=== PATIENT | male | born 1945 | race Caucasian/White ===

== ENCOUNTER 2016-10-21 17:09 | Inpatient (IN) | payer MEDICARE, OTHER ==
[~2016-10-21] VITALS: Ht 177.8 cm; Wt 88.6 kg
[2016-10-21] MEDS ORDERED: IV NORMAL SALINE 1000ML BAG 1,000 ML IV SCH (18:30)
[2016-10-21 18:31] LABS: BASO # 0.1 x10^3/uL (0.0-0.2); BASO % 1 % (0-3); EOS % 3 % (0-3); HEMATOCRIT 34.3 % (39.0-53.0); LYMPH # 1.5 x10^3/uL (1.0-4.8); LYMPH % 23 % (24-48); MEAN CORPUSCULAR HEMOGLOBIN 28 pg (25-35); MEAN CORPUSCULAR HGB CONC 32 g/dL (31-37); MEAN CORPUSCULAR VOLUME 86 fL (79-100); MONO % 9 % (0-9); NEUT % 64 % (31-73); PLATELET COUNT 119 x10^3/uL (140-400); RED CELL DISTRIBUTION WIDTH 19.4 % (11.5-14.5); WHITE BLOOD COUNT 6.5 x10^3/uL (4.0-11.0)
[2016-10-21 18:54] LABS: CALCIUM 8.6 mg/dL (8.5-10.1); CREATININE 2.7 mg/dL (0.7-1.3); GFR 23.3; POTASSIUM 3.4 mmol/L (3.5-5.1)
--- NOTE | 2016-10-21 18:55 | RAD ---
PROCEDURE Head CT without contrast. HISTORY Altered mental status. TECHNIQUE Computed tomographic images the head were obtained without contrast. One or more of the following individualized dose reduction techniques were utilized for this examination: 1. Automated exposure control; 2. Adjustment of the mA and/or kV according to patient size; 3. Use of iterative reconstruction technique. COMPARISON None. FINDINGS There is no acute or subacute hemorrhage. There is no mass effect or midline shift. There is no hydrocephalus. There is mild cerebral atrophy. There is a chronic lacunar infarct within the right caudate nucleus, with associated ex vacuo dilatation of the frontal horn of the right lateral ventricle. There are scattered areas of hypodensity within the cerebral white matter, likely due to chronic small vessel disease. There are findings consistent with lens surgery. The paranasal sinuses mastoid air cells are unremarkable. No calvarial lesion is seen. IMPRESSION 1. Scattered areas of hypodensity within the cerebral white matter, likely due to chronic small vessel disease. 2. Chronic lacunar infarct within the right caudate nucleus. 3. Cerebral volume loss. 4. Note is made that MRI is more sensitive for acute infarction. Electronically signed by: Ree Galvez (Oct 21, 2016 18:53:53)
[2016-10-21 19:04] LABS: ALBUMIN 2.6 g/dL (3.4-5.0); ALBUMIN/GLOBULIN RATIO 0.5 (1.0-1.7); TOTAL BILIRUBIN 0.9 mg/dL (0.2-1.0); TOTAL PROTEIN 7.6 g/dL (6.4-8.2)
[2016-10-21 19:15] LABS: BILIRUBIN,URINE NEGATIVE (NEG); GLUCOSE,URINE NEGATIVE (NEG); NITRITE,URINE POSITIVE (NEG); PROTEIN,URINE 100 mg/dL (NEG-TRACE); UROBILINOGEN,URINE 0.2 mg/dL (0.2 mg/dL)
[2016-10-21 19:21] LABS: BACTERIA,URINE MANY /HPF (0-FEW); WBC,URINE >40 /HPF (0-4)
[2016-10-21] MEDS ORDERED: ONDANSETRON PF 4 MG/2 ML VIAL. IV PRN (20:15)
[2016-10-21] MEDS ORDERED: CEFTRIAXONE 1GM IVPB FOR OMNI 50 ML IV ONE (20:15)
[2016-10-21] MEDS ORDERED: IV DEXTROSE 5% - 0.9 % NACL 1,000 ML IV ONE (20:30)
[2016-10-21 22:46] VITALS: BP 118/66
[2016-10-21 22:47] VITALS: BP 118/66
--- NOTE | 2016-10-21 23:41 | PHYS DOC ---
Past Medical History Past Medical History: A-Fib, Bipolar, Depression, Diabetes-Type II, HIV, Hypertension, Hypothyroid Additional Past Medical Histor: BPH, INSOMNIA Past Surgical History: Other Additional Past Surgical Histo: CATARACT Alcohol Use: None Drug Use: None Adult General Chief Complaint Chief Complaint: ALTERED MENTAL STATUS HPI HPI Patient is a 71 year old gentleman who came today from the correction secondary to altered mental status. Patient does have a history of HIV, diabetes , hypertension, UTIs, bipolar. History per EMS was patient upon arrival to the correction had a blood sugar in the 60s. Patient was given an amp of D50 and blood sugar has remained in the 90s. They report that he had no change in his altered mental status after given D50 so they went ahead and gave him Narcan. EMS reported that his metal status was worse after giving him Narcan. Patient does have a phenyl patch on his back which was removed. History is very limited secondary to his altered mental status and dementia. No further history is obtainable at this time from the patient Patient's ER workup was significant for a UA with her the 40 wbc's per high- power field. Patient's blood sugar remained stable in the ED. Patient does not present with symptoms that would be concerning for meningitis. Patient's chest x -ray did not reveal any pneumonia. Patient is DNR. Patient will be admitted to the hospital for treatment of a UTI with altered mental status. Patient be started on D5 half-normal saline to help maintain his blood sugar. Patient was given IV Rocephin in the ER cultures were sent. Review of Systems Review of Systems Review of Systems unobtainable secondary to the patient's Current Medications Current Medications Current Medications Medications (Trade) Dose Ordered Sig/Emma Start Time Stop Time Status Last Admin Dose Admin Sodium Chloride (Iv Sodium Chloride 0.9% 1000ml Bag) 1,000 ml @ 1,000 mls/hr Q1H 10/21/16 18:30 10/21/16 19:29 DC 10/21/16 19:08 1,000 MLS/HR Allergies Allergies Allergies Coded Allergies Type Severity Reaction Last Updated Verified diltiazem Allergy Intermediate 10/21/16 Yes Physical Exam Physical Exam Constitutional: Cachectic unresponsive to verbal stimuli. Patient responds to painful stimuli. Patient responds to sound. Patient moving all extremities HENT: Normocephalic, atraumatic, bilateral external ears normal, dry mucous membranes. Eyes: , no discharge. [] Neck: Difficult to assess secondary to altered mental status. Cardiovascular:Heart rate regular rhythm, Lungs & Thorax: Bilateral breath sounds clear to auscultation [] Abdomen: Bowel sounds normal, soft, no tenderness, no masses, no pulsatile masses. [] Skin: Warm, dry, no erythema Back: No tenderness, no CVA tenderness. [] Extremities: No tenderness, no cyanosis, no clubbing, ROM intact, no edema. [] Neurologic: Unable to fully assess secondary to decreased responsiveness. Current Patient Data Vital Signs Vital Signs Date Time Temp Pulse Resp B/P Pulse Ox O2 Delivery O2 Flow Rate FiO2 10/21/16 20:05 54 13 127/67 99 Room Air 10/21/16 17:36 97.5 97.5 Lab Values Laboratory Tests Test 10/21/16 17:38 10/21/16 18:24 10/21/16 18:45 10/21/16 18:54 Glucose (Fingerstick) 89mg/dL (70-99) 71mg/dL (70-99) White Blood Count 6.5x10^3/uL (4.0-11.0) Red Blood Count 4.00x10^6/uL (4.30-5.70) L Hemoglobin 11.0g/dL (13.0-17.5) L Hematocrit 34.3% (39.0-53.0) L Mean Corpuscular Volume 86fL (79-100) Mean Corpuscular Hemoglobin 28pg (25-35) Mean Corpuscular Hemoglobin Concent 32g/dL (31-37) Red Cell Distribution Width 19.4% (11.5-14.5) H Platelet Count 119x10^3/uL (140-400) L Neutrophils (%) (Auto) 64% (31-73) Lymphocytes (%) (Auto) 23% (24-48) L Monocytes (%) (Auto) 9% (0-9) Eosinophils (%) (Auto) 3% (0-3) Basophils (%) (Auto) 1% (0-3) Neutrophils # (Auto) 4.2x10^3uL (1.8-7.7) Lymphocytes # (Auto) 1.5x10^3/uL (1.0-4.8) Monocytes # (Auto) 0.5x10^3/uL (0.0-1.1) Eosinophils # (Auto) 0.2x10^3/uL (0.0-0.7) Basophils # (Auto) 0.1x10^3/uL (0.0-0.2) Sodium Level 144mmol/L (136-145) Potassium Level 3.4mmol/L (3.5-5.1) L Chloride Level 111mmol/L (98-107) H Carbon Dioxide Level 20mmol/L (21-32) L Anion Gap 13 (6-14) Blood Urea Nitrogen 53mg/dL (8-26) H Creatinine 2.7mg/dL (0.7-1.3) H Estimated GFR (Cockcroft-Gault) 23.3 BUN/Creatinine Ratio 20 (6-20) Glucose Level 80mg/dL (70-99) Calcium Level 8.6mg/dL (8.5-10.1) Total Bilirubin 0.9mg/dL (0.2-1.0) Aspartate Amino Transferase (AST) 88U/L (15-37) H Alanine Aminotransferase (ALT) 37U/L (16-63) Alkaline Phosphatase 274U/L (46-116) H Total Protein 7.6g/dL (6.4-8.2) Albumin 2.6g/dL (3.4-5.0) L Albumin/Globulin Ratio 0.5 (1.0-1.7) L Urine Collection Type Unknown Urine Color Yellow Urine Clarity Turbid Urine pH 7.0 Urine Specific [place] 1.010 Urine Protein 100mg/dL (NEG-TRACE) Urine Glucose (UA) Negativemg/dL (NEG) Urine Ketones (Stick) Negativemg/dL (NEG) Urine Blood Large (NEG) Urine Nitrite Positive (NEG) Urine Bilirubin Negative (NEG) Urine Urobilinogen Dipstick 0.2mg/dL (0.2 mg/dL) Urine Leukocyte Esterase Large (NEG) Urine RBC 6-10/HPF (0-2) Urine WBC >40/HPF (0-4) Urine Squamous Epithelial Cells /LPF Urine Bacteria Many/HPF (0-FEW) Urine Mucus Mod/LPF Laboratory Tests 10/21/16 18:24 Laboratory Tests 10/21/16 18:24 EKG EKG [] Radiology/Procedures Radiology/Procedures [] Course & Med Decision Making Course & Med Decision Making Pertinent Labs and Imaging studies reviewed. (See chart for details) [] Dragon Disclaimer Dragon Disclaimer This electronic medical record was generated, in whole or in part, using a voice recognition dictation system. Departure Departure Impression: Primary Impression: Altered mental status Additional Impressions: Renal failure UTI (urinary tract infection) Disposition: ADMITTED INPATIENT Admitting Physician: Carlos Naqvi Condition: GUARDED Referrals: UNKNOWN PCP NAME (PCP) Problem Qualifiers LANIE HARRIS MD Oct 21, 2016 23:41
[2016-10-22] MEDS ORDERED: MORP30TA83 PO (01:51)
[2016-10-22] MEDS ORDERED: OFLO5DRO4 LEFTEYE (01:51)
[2016-10-22] MEDS ORDERED: INSU100I17 SQ (01:51)
[2016-10-22] MEDS ORDERED: COLC0.6T42 PO (01:51)
[2016-10-22] MEDS ORDERED: CLON1TAB3 PO (01:51)
[2016-10-22] MEDS ORDERED: LINA145C PO (01:51)
[2016-10-22] MEDS ORDERED: LORA2ORA7 PO (01:51)
[2016-10-22] MEDS ORDERED: AMLO10TA4 PO (01:51)
[2016-10-22] MEDS ORDERED: KETO5DRO24 LEFTEYE (01:51)
[2016-10-22] MEDS ORDERED: DIPH25CA58 PO (01:51)
[2016-10-22] MEDS ORDERED: PRED5DRO6 LEFTEYE (01:51)
[2016-10-22] MEDS ORDERED: INSU100V8 SQ (01:51)
[2016-10-22] MEDS ORDERED: CARV6.25 PO (01:51)
[2016-10-22] MEDS ORDERED: DIFL5DRO2 RIGHTEYE (01:51)
[2016-10-22] MEDS ORDERED: FURO-69 PO (01:51)
[2016-10-22] MEDS ORDERED: GABA-586 PO (01:51)
[2016-10-22] MEDS ORDERED: LOPE2CAP88 PO (01:51)
[2016-10-22] MEDS ORDERED: FENT1PAT90 TP (01:51)
[2016-10-22] MEDS ORDERED: SENN8.6T3 PO (01:51)
[2016-10-22] MEDS ORDERED: LEVO75TA5 PO (01:51)
[2016-10-22] MEDS ORDERED: APIX5TAB PO (01:51)
--- NOTE | 2016-10-22 02:15 | ACF ---
Admission Forms Criteria MENTAL STATUS CHANGE Clinical Indications for Inpatient Care (Place 'X' for any and all applicable criteria): Ongoing inpatient care may be needed for ANY ONE of the following(1)(2)(3)(5)(6) : [X]I. Suspected serious etiology (eg, medical disorder, TIP SCOURER event) of mental status change [ ]II. Danger to self or others not manageable at lower level of care [ ]III. Grave disability (eg, inability to perform self care necessary at lower level of care) [ ]IV. Agitation or inappropriate behavior interfering with care for primary condition (eg, attempting to discontinue lines or drains prematurely, unable to cooperate with respiratory care) [ ]V. Delirium [A] [D][E] as described by ANY ONE of the following(26): [ ]a) Delirium due to alcohol or sedative [F] withdrawal [ ]b) Delirium of uncertain etiology that has not responded to appropriate empiric treatment [ ]c) Delirium that prevents performance of a life-sustaining function (eg, feeding or hydrating oneself) [ ]. General contraindications and/or Inappropriate clinical situations for Observational Care in patients with Mental Status Change, when ANY ONE of the following is required: [ ]a) Prediction of prolongation of LOS based on ANY ONE of the following may be considered as a contraindication for observational care 2, 3, 4, 5, 6, 7, 8, 9, 10, 11 [ ]i) Age > 65 yrs. [ ]ii) Patient arriving by ambulance [ ]iii) Patient with high acuity [ ]iv) Patient requiring vital sign monitoring [ ]v) Patient on IV medication [ ]b) Systolic blood pressures 180mmHg 3,12 [ ]c) Patient with altered mental status including delirium and other alteration of consciousness, (3) [ ]d) Patient whose discharge disposition will be to a snf home or rehabilitation home should not be managed in Emergency Department Observation Unit. CMS rule requires 3 days hospital stay before such placement.3,13 [ ]e) Patient with failure to thrive due to broad array of etiologies 3,16,17 [ ]f) Inability to ambulate 3,14 Extended stay beyond goal length of stay for the primary condition may be needed until ALL of the following are present(3)(5): [ ]a) Underlying medical etiology of mental status change is absent, or has been established and adequately treated [ ]b) Danger to self or others is absent or manageable at lower level of care. [ ]c) Behavior crisis management, including physical or chemical restraints, is not required or available at lower level of car [ ]d) Substance or alcohol withdrawal is absent or manageable at lower level of care. [ ]e) Behavioral symptoms (eg, agitation, somnolence, inappropriate behavior) are absent, or are manageable at lower level of care. The original [facility] content created by [facility] has been revised. The portions of the content which have been revised are identified through the use of italic text or in bold, and [facility] has neither reviewed nor approved the modified material. All other unmodified content is copyright [facility]. Please see references footnoted in the original [facility] edition 2016 Admission Criteria Met?: Yes JOE GEORGE Oct 22, 2016 02:15
[2016-10-22 03:22] VITALS: BP 109/63
[2016-10-22 07:00] VITALS: BP 114/65
--- NOTE | 2016-10-22 08:10 | RAD ---
Portable chest, 10/21/2016: History: Altered mental status There has been a previous median sternotomy. The patient is rotated to the left. The heart is mildly enlarged. There is calcific plaquing of the aorta. The pulmonary vascularity is at the upper limits of normal. A density along the left cardiac apex probably represents an epicardial fat pad accentuated by patient rotation. No definite pulmonary infiltrate is seen. There is no evidence of pleural fluid. IMPRESSION: Mild cardiomegaly and aortic atherosclerosis.
--- NOTE | 2016-10-22 08:53 | EKG ---
[facility] [address] [place] [address] Test Date: 2016-10-21 Test Time: 17:46:16 Pat Name: ALISON TOM Department: Room: 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
[2016-10-22] MEDS ORDERED: DEXTROSE 50% 25 GM / 50ML DISP.SYRIN. IV ONE (10:12)
[2016-10-22 11:01] VITALS: BP 117/65
[2016-10-22] MEDS ORDERED: LOPERAMIDE 2 MG CAPSULE PO PRN (11:45)
[2016-10-22] MEDS ORDERED: DEXTROSE 50% 25 GM / 50ML DISP.SYRIN. IV PRN (11:45)
[2016-10-22] MEDS: INSULIN ASPART 300 UNITS/3 ML INSULN.PEN SQ SCH ×2 (11:58→16:36)
[2016-10-22] MEDS: LEVOTHYROXINE 75 MCG TABLET PO SCH (11:58)
[2016-10-22] MEDS: AMLODIPINE BESYLATE 10 MG TABLET PO SCH (11:58)
[2016-10-22] MEDS: FUROSEMIDE 20 MG TABLET PO SCH (11:58)
[2016-10-22] MEDS: SENNOSIDES 8.6 MG TABLET PO SCH ×2 (11:58→21:00)
[2016-10-22] MEDS: LINACLOTIDE 145 MCG CAPSULE. PO SCH (11:58)
[2016-10-22] MEDS: CIPROFLOXACIN 0.3% OPHTH SOLUTION 2.5ML BOTTLE. OS SCH ×4 (12:15→22:00)
[2016-10-22] MEDS: DEXAMETHASONE 0.1% OPHTH SOLUTION 5ML BOTTLE. OS SCH ×3 (13:00→22:06)
[2016-10-22] MEDS: KETOROLAC TROMETHAMINE 0.5% OPHTH SOLUTION 3ML BOTTLE. OS SCH ×2 (13:00→22:03)
[2016-10-22] MEDS ORDERED: NON FORMULARY ITEM (Difluprednate (Durezol) 5 ML) RIGHTEYE SCH (14:00)
[2016-10-22 15:00] VITALS: BP 115/64
[2016-10-22] MEDS: IV DEXTROSE 5% - 0.9 % NACL 1,000 ML IV SCH (17:15)
[2016-10-22 19:00] VITALS: BP_SYST 104; BP_SYST 152; BP_DIAS 40; BP_DIAS 78
[2016-10-22] MEDS ORDERED: CEFTRIAXONE SODIUM 1 GM in IV NORMAL SALINE 50ML 50 ML IV SCH (21:00)
[2016-10-22] MEDS: COLCHICINE 0.6 MG TABLET PO SCH (21:57)
[2016-10-22] MEDS: APIXABAN 5 MG TABLET. PO SCH (21:58)
[2016-10-22] MEDS: CARVEDILOL 6.25 MG TABLET PO SCH (22:05)
--- NOTE | 2016-10-22 23:18 | HP ---
ADMIT DATE: 10/21/2016 HISTORY OF PRESENT ILLNESS: The patient is a 71-year-old male patient, a resident at [facility] who was brought to the Emergency Room with altered mental status. He is known to have HIV, diabetes, hypertension, recurrent UTIs and upon arrival of the emergency medical personnel to the [facility], his blood sugar was only 60. He was given an amp of D50 and blood sugar has risen to the 90s, but did not change in mental status and was given Narcan without much improvement and was brought to the Emergency Room where he was found to have a fentanyl patch on his back that was removed, but apparently he continued to have low blood sugar and was started on D5 half normal and his blood sugar has stabilized, although he continues to have some periods of confusion. PAST MEDICAL HISTORY: Significant for HIV, for which he was on highly active antiretroviral therapy that was apparently discontinued more than a year ago, has ischemic cardiomyopathy, left atrial thrombus and he was on Coumadin, type 2 diabetes, hypothyroidism, chronic kidney disease, AFib, obstructive sleep apnea on CPAP as well as depression. PAST SURGICAL HISTORY: Significant for coronary artery disease status post coronary artery bypass graft surgery. He has also AICD placement and hip fracture, status post open reduction and internal fixation. ALLERGIES: HE IS ALLERGIC TO DILTIAZEM. MEDICATIONS: He is currently on the following medications: He is on apixaban 5 mg twice a day, Benadryl 25 mg p.o. 2 times a day, clonazepam 1 mg 2 times a day, colchicine 0.6 mg twice a day, Coreg 6.25 mg twice a day, difluprednate 1 drop in the right eye 3 times a day for cataract repair, fentanyl patch 25 mcg per hour topically q. 72 hours, gabapentin 300 mg 3 times a day. He is also on Imodium 2 mg by mouth every 4 hours as needed for loose bowel movement, ketorolac tromethamine solution 0.5% one drop to both eyes 3 times a day. He is on Lantus 25 units subcutaneously at bedtime, Lasix 20 mg, he takes 3 tablets orally one time a day, levothyroxine sodium 75 mcg once a day, Linzess capsule 145 mg orally in the morning for constipation, lorazepam 2 mg sublingually for insomnia at bedtime, MS Contin 30 mg slow release 1 tablet by mouth twice a day, Norvasc 10 mg once a day, NovoLog FlexPen as insulin sliding scale, ofloxacin solution 0.3% one drop in the left eye 3 times a day. He is on prednisolone acetate 1% instill one drop to the left eye 3 times a day, senna 1 tablet twice a day. FAMILY HISTORY: Both parents have hypertension and myocardial infarction. SOCIAL HISTORY: He lives alone. No partners. He does not smoke, drink alcohol or use any recreational drugs. REVIEW OF SYSTEMS: As per history of present illness when I examined him. PHYSICAL EXAMINATION: GENERAL: On arrival to the Emergency Room, he looked pale, not jaundiced, cyanosis, or thyromegaly. No jugular venous distension, no limb edema. VITAL SIGNS: His heart rate was 61, blood pressure was 118/66, temperature was 97.8, respiratory rate was 16 and oxygen saturation was 94% on room air. HEENT: Showed normocephalic, atraumatic. NECK: Supple. HEART: Showed normal first and second heart sounds with no gallop, rub or murmur. CHEST: Clear to auscultation. No crepitation or rhonchi. ABDOMEN: Distended, soft, and nontender. NEUROLOGIC: He was lethargic, but arousable. Cranial nerves are intact. EXTREMITIES: He moves extremities without difficulty. LABORATORY DATA: On arrival showed that his serum sodium was 144, potassium 3.4, chloride 111, bicarbonate 20, anion gap of 13, BUN 53, creatinine 2.7, estimated GFR was 23 mL per minute, his glucose was 80, calcium was 8.6. Total bilirubin, AST, ALT were normal. Alkaline phosphatase slightly elevated. Total protein was 7.6, albumin 2.6. His white cell count was 6500, hemoglobin 11, hematocrit 34, MCV 86 and platelet count of 119,000. His urinalysis showed that the urine was yellow, turbid with a pH of 7, specific gravity of 1.010. There is trace of protein. The urine was negative for glucose, ketones, large amount of blood, positive for nitrites and there was large amount of leukocyte esterase with 6-10 rbc's, more than 40 wbc's and too many bacteria. The urine was sent for culture and sensitivity. He did have a CT scan of the head, which showed that he has scattered area of hypodensity within the cerebral white matter, likely due to chronic small vessel disease. He has chronic lacunar infarct within the right caudate nucleus. He did have a chest x-ray, which showed that he had previous median sternotomy. The patient is irritated. The left heart is mildly enlarged. There is calcific plaquing of the aorta. The pulmonary vascularity is at the upper limit of normal. The density along the left cardiac apex, probably represents an apical and epicardial fat pad accentuated by the patient's irritation. No definite pulmonary infiltrates are seen. There is no evidence of pleural effusion. ASSESSMENT AND PLAN: In summary, the patient was admitted with altered mental status, most likely multifactorial including hypoglycemia, urinary tract infection. He is also on fentanyl and MS Contin. The patient was started on D5 half normal to monitor his blood sugar ____ to maintain his blood sugar about 70. He was started also on Rocephin after obtaining the appropriate cultures and sensitivity. RORO DEJESUS MD DR: JUAN PABLO/alen JOB#: [id number] / [id number]
[2016-10-22 23:26] VITALS: BP 133/65
--- NOTE | 2016-10-23 01:44 | PN ---
DATE: 10/22/2016 SUBJECTIVE: The patient is resting, slightly propped up, in no apparent distress. He is definitely more awake, alert, stated that he is hungry. Denied any other complaints. PHYSICAL EXAMINATION: GENERAL: When I examined him this morning, he looked pale, no jaundice, cyanosis, or thyromegaly. No jugular venous distention. No limb edema. VITAL SIGNS: His heart rate was 48, blood pressure 117/65, temperature was 97.9, respiratory rate was 16, and oxygen saturation was 95%. HEAD, EYES, EARS, NOSE AND THROAT: Showed normocephalic, atraumatic. NECK: Supple. HEART: Showed normal first and second heart sounds with no gallop, rub or murmur. CHEST: Clear to auscultation. No crepitation or rhonchi. ABDOMEN: Distended, soft, nontender. No guarding or rigidity. No organomegaly. All hernial orifices intact. Bowel sounds normal. NEUROLOGIC: He was definitely more awake, alert, responding appropriately. Cranial nerves intact. He moves extremities without difficulty. He has wounds on the posterior aspects around the right heel. LABORATORY DATA: No lab works were done this morning. PLAN: To start him on ADA diet. I reconciled all his medication and stopped all the medication that might be contributing to his altered mental status. We are going to continue with IV fluid, IV Rocephin and repeat all his labs tomorrow including his TSH. I have consulted physical therapy to work with him and also the wound care team to look into his wounds. ASSESSMENT: 1. Altered mental status, most likely multifactorial including, a. Hypoglycemia. b. Urinary tract infection. c. Narcotics including morphine and fentanyl as well as hypnotics including lorazepam and diphenhydramine. 2. Human immunodeficiency virus status. 3. Congestive heart failure, clinically compensated, type 2 diabetes and chronic kidney disease. RORO DEJESUS MD DR: JUAN PABLO/alen JOB#: [id number] / [id number]
[2016-10-23] MEDS: IV DEXTROSE 5% - 0.9 % NACL 1,000 ML IV SCH (03:13)
[2016-10-23 03:38] VITALS: BP 156/94
[2016-10-23 05:00] LABS: BASO % 1 % (0-3); EOS % 2 % (0-3); HEMATOCRIT 32.7 % (39.0-53.0); HEMOGLOBIN 10.4 g/dL (13.0-17.5); LYMPH # 1.2 x10^3/uL (1.0-4.8); LYMPH % 26 % (24-48); MEAN CORPUSCULAR HEMOGLOBIN 27 pg (25-35); MEAN CORPUSCULAR HGB CONC 32 g/dL (31-37); MEAN CORPUSCULAR VOLUME 86 fL (79-100); MONO % 9 % (0-9); NEUT % 62 % (31-73); PLATELET COUNT 124 x10^3/uL (140-400); RED BLOOD COUNT 3.81 x10^6/uL (4.30-5.70); RED CELL DISTRIBUTION WIDTH 19.7 % (11.5-14.5); WHITE BLOOD COUNT 4.8 x10^3/uL (4.0-11.0)
[2016-10-23 06:06] LABS: ALBUMIN 2.4 g/dL (3.4-5.0); ALBUMIN/GLOBULIN RATIO 0.5 (1.0-1.7); CALCIUM 8.4 mg/dL (8.5-10.1); GFR 32.9; POTASSIUM 3.4 mmol/L (3.5-5.1); TOTAL BILIRUBIN 0.5 mg/dL (0.2-1.0); TOTAL PROTEIN 7.2 g/dL (6.4-8.2)
[2016-10-23] MEDS: DEXAMETHASONE 0.1% OPHTH SOLUTION 5ML BOTTLE. OS SCH ×5 (06:14→21:36)
[2016-10-23] MEDS: CIPROFLOXACIN 0.3% OPHTH SOLUTION 2.5ML BOTTLE. OS SCH ×5 (06:14→21:35)
[2016-10-23 07:15] VITALS: BP 143/76
[2016-10-23] MEDS: INSULIN ASPART 300 UNITS/3 ML INSULN.PEN SQ SCH ×3 (09:21→17:02)
[2016-10-23] MEDS: CARVEDILOL 6.25 MG TABLET PO SCH ×2 (09:22→17:17)
[2016-10-23] MEDS: KETOROLAC TROMETHAMINE 0.5% OPHTH SOLUTION 3ML BOTTLE. OS SCH ×3 (09:23→21:35)
[2016-10-23] MEDS: LEVOTHYROXINE 75 MCG TABLET PO SCH (09:26)
[2016-10-23] MEDS: COLCHICINE 0.6 MG TABLET PO SCH ×2 (09:26→21:19)
[2016-10-23] MEDS: SENNOSIDES 8.6 MG TABLET PO SCH ×2 (09:26→21:19)
[2016-10-23] MEDS: FUROSEMIDE 20 MG TABLET PO SCH (09:27)
[2016-10-23] MEDS: AMLODIPINE BESYLATE 10 MG TABLET PO SCH (09:27)
[2016-10-23] MEDS: APIXABAN 5 MG TABLET. PO SCH ×2 (09:27→21:18)
[2016-10-23] MEDS: LINACLOTIDE 145 MCG CAPSULE. PO SCH (09:28)
[2016-10-23] MEDS ORDERED: ANTI-COAG MONITOR BY PHARMACY. MC PRN (09:30)
[2016-10-23 11:00] VITALS: BP 151/88
[2016-10-23] MEDS ORDERED: POTASSIUM CHLORIDE 20 MEQ TABLET.ER. PO ONE (13:00)
--- NOTE | 2016-10-23 13:28 | RAD ---
EXAM: Chest one view. HISTORY: Shortness of breath. COMPARISON: 10/21/2016. FINDINGS: A frontal view of the chest is obtained. There are changes of coronary artery bypass grafting. The central pulmonary vasculature is prominent. There is no pneumothorax or pleural effusion. The heart is moderately enlarged. There are atherosclerotic calcifications of the aorta. IMPRESSION: 1. Moderate cardiomegaly. Pulmonary vascular redistribution. Correlate for volume overload.
[2016-10-23 14:49] VITALS: BP 158/71
[2016-10-23] MEDS ORDERED: FUROSEMIDE 40 MG/4 ML VIAL IVP ONE (15:45)
[2016-10-23 19:00] VITALS: BP 150/82
[2016-10-23] MEDS ORDERED: CEFPODOXIME PROXETIL 200 MG TABLET PO SCH (21:00)
[2016-10-23 23:00] VITALS: BP 144/73
[2016-10-24] MEDS: CLONAZEPAM 1 MG TABLET PO SCH ×2 (01:37→09:44)
[2016-10-24] MEDS: MORPHINE ER 30 MG TABLET.ER PO SCH ×2 (01:37→09:45)
[2016-10-24 05:48] LABS: BASO # 0.1 x10^3/uL (0.0-0.2); BASO % 1 % (0-3); EOS % 3 % (0-3); HEMATOCRIT 30.2 % (39.0-53.0); HEMOGLOBIN 10.1 g/dL (13.0-17.5); LYMPH # 1.5 x10^3/uL (1.0-4.8); LYMPH % 29 % (24-48); MEAN CORPUSCULAR HEMOGLOBIN 28 pg (25-35); MEAN CORPUSCULAR HGB CONC 33 g/dL (31-37); MEAN CORPUSCULAR VOLUME 83 fL (79-100); MONO % 8 % (0-9); NEUT % 60 % (31-73); PLATELET COUNT 135 x10^3/uL (140-400); RED BLOOD COUNT 3.66 x10^6/uL (4.30-5.70); WHITE BLOOD COUNT 5.1 x10^3/uL (4.0-11.0)
[2016-10-24] MEDS: DEXAMETHASONE 0.1% OPHTH SOLUTION 5ML BOTTLE. OS SCH ×3 (06:00→14:00)
[2016-10-24] MEDS: CIPROFLOXACIN 0.3% OPHTH SOLUTION 2.5ML BOTTLE. OS SCH ×3 (06:00→14:00)
--- NOTE | 2016-10-24 06:00 | PN ---
DATE: 10/23/2016 SUBJECTIVE: The patient is apparently noted to be congested and somewhat short of breath. Started him on oxygen and his IV fluid was reduced to 50 mL per hour. Unfortunately, nobody has called me with this change in his status. In any case, he is obviously awake, alert, lucid, answers questions appropriately. He does have recurrent bouts of cough that seemed to be mostly dry when I saw him OBJECTIVE: GENERAL: When I examined him, he looked somewhat pale. No jaundice or cyanosis. No lymphadenopathy, no thyromegaly, no jugular venous distention, no limb edema. VITAL SIGNS: His heart rate was 66, blood pressure was 151/88, temperature was 97.4, respiratory rate was 24, and oxygen saturation was 98% on 3 liters of oxygen by nasal cannula. HEAD, EYES, EARS, NOSE, AND THROAT: Examination showed normocephalic, atraumatic. NECK: Supple. HEART: Showed normal first and second heart sounds, with no gallop, rub or murmur. CHEST: Shows central trachea, equal bilateral expansion, ____ could not appreciate any crepitation or rhonchi. ABDOMEN: Distended, soft, nontender. NEUROLOGIC: He is definitely more awake, alert, lucid, answers questions appropriately. Cranial nerves intact. He moves all extremities without difficulty. He ambulates with minimal assistance. His intake over the last 24 hours was 660, output was 1700. LABORATORY DATA: As of this morning showed a white cell count of 4800, hemoglobin 10.4, hematocrit 32.7, MCV 86, and platelet count of 124,000. His chemistry showed a serum sodium 146, potassium 3.4, chloride 113, bicarbonate 19, anion gap of 14, BUN 39, creatinine 2. Estimated GFR was 33 mL per minute. His glucose 161, calcium was 8.4. Total bilirubin and ALT normal. AST and alkaline phosphatase are elevated. Total protein was 7.2, albumin 2.4. TSH was 1.105. His screen for MRSA by PCR was positive. His urine culture grew Proteus mirabilis sensitive to ceftriaxone and other cephalosporins and ampicillin. ASSESSMENT: 1. Altered mental status, multifactorial, including: A. Hypoglycemia, that has resolved. B. Urinary tract infection growing Proteus mirabilis sensitive to ceftriaxone. C. Narcotics including morphine and fentanyl as well as hypnotics including lorazepam and diphenhydramine that were discontinued. 2. Human immunodeficiency virus status. 3. Congestive heart failure: Clinically compensated. 4. Type 2 diabetes mellitus. 5. Chronic kidney disease. 6. Hypernatremia and hypokalemia. PLAN: My plan is to discontinue the IV fluid, replenish his potassium, and repeat his lab work. RORO DEJESUS MD DR: JUAN PABLO/alen JOB#: [id number] / [id number]
[2016-10-24 06:16] LABS: ALBUMIN 2.5 g/dL (3.4-5.0); ALBUMIN/GLOBULIN RATIO 0.6 (1.0-1.7); CALCIUM 8.6 mg/dL (8.5-10.1); CREATININE 1.8 mg/dL (0.7-1.3); GFR 37.2; POTASSIUM 3.4 mmol/L (3.5-5.1); TOTAL BILIRUBIN 0.8 mg/dL (0.2-1.0); TOTAL PROTEIN 6.7 g/dL (6.4-8.2)
[2016-10-24 07:00] VITALS: BP 154/78
[2016-10-24] MEDS: INSULIN ASPART 300 UNITS/3 ML INSULN.PEN SQ SCH ×2 (08:00→12:00)
[2016-10-24] MEDS: AMLODIPINE BESYLATE 10 MG TABLET PO SCH ×2 (09:00→14:49)
[2016-10-24] MEDS: CARVEDILOL 6.25 MG TABLET PO SCH (09:44)
[2016-10-24] MEDS: COLCHICINE 0.6 MG TABLET PO SCH (09:44)
[2016-10-24] MEDS: APIXABAN 5 MG TABLET. PO SCH (09:44)
[2016-10-24] MEDS: FUROSEMIDE 20 MG TABLET PO SCH (09:44)
[2016-10-24] MEDS: LEVOTHYROXINE 75 MCG TABLET PO SCH (09:45)
[2016-10-24] MEDS: SENNOSIDES 8.6 MG TABLET PO SCH (09:45)
[2016-10-24] MEDS: LINACLOTIDE 145 MCG CAPSULE. PO SCH (09:45)
[2016-10-24] MEDS: KETOROLAC TROMETHAMINE 0.5% OPHTH SOLUTION 3ML BOTTLE. OS SCH ×2 (09:53→14:00)
[2016-10-24 11:00] VITALS: BP 134/61
[2016-10-24 15:01] VITALS: BP 150/73
[2016-10-24] MEDS ORDERED: CEFPODOXIME PROXETIL 100 MG TABLET PO SCH (21:00)
--- NOTE | 2016-10-25 01:00 | DS ---
DATE OF DISCHARGE: 10/24/2016 HOSPITAL COURSE: The patient is a 71-year-old male patient resident at [facility], was admitted originally with altered mental status that was found to be multifactorial. He was hypoglycemic. He was also found to have urinary tract infection, has had multiple analgesics and hypnotics that they discontinued. He was started on D5 half normal and also started empirically on IV antibiotic in the form of Rocephin. His blood sugar had stabilized and his urine has grown Proteus mirabilis sensitive to Rocephin, so had received a total of 4 days of IV Rocephin and was switched to cefpodoxime. He did actually very well. He was seen also in consultation by the wound care team and was evaluated and changed his dressing. He did not require any debridement and a decision was made to discharge him back to [facility]. PHYSICAL EXAMINATION: GENERAL: When I saw him this afternoon, he looked well and was clearly in no apparent respiratory distress, pale, but no jaundice, cyanosis, or thyromegaly. No jugular venous distention. Mild bilateral lower limb edema. VITAL SIGNS: His heart rate was 52, blood pressure 150/73, temperature was 97.9, respiratory rate was 18 and oxygen saturation was 97% on 2 liters of oxygen. HEAD, EYES, EARS, NOSE AND THROAT: Showed normocephalic, atraumatic. NECK: Supple. HEART: Showed normal first and second heart sounds with no gallop, rub or murmur. CHEST: Clear to auscultation. No crepitation or rhonchi. ABDOMEN: Distended, soft, nontender. No guarding or rigidity. No organomegaly. Hernial orifices intact. Bowel sounds normal. NEUROLOGIC: He was definitely more awake, alert, responding appropriately. Cranial nerves intact. He moves extremities without difficulty, ambulates without assistance or assistive devices. The wound in his right big toe has healed completely, has stage III decubitus ulcer on the right heel that is also healing nicely and there is no evidence of erythema, tenderness or discharge. LABORATORY DATA: Today showed a serum sodium 143, potassium 3.4, chloride 111, bicarbonate 24, anion gap of 8, BUN 34, creatinine 1.8, estimated GFR was 37, glucose was 90, calcium was 8.6. Total bilirubin, ALT normal. AST and alkaline phosphatase are elevated. Total protein was 6.7, albumin 2.5. His white cell count was 5000, hemoglobin 10, hematocrit 30, MCV 83, and platelet count 235,000. DISCHARGE MEDICATIONS: He will be discharged back to [facility] on amlodipine 10 mg once a day, apixaban or Eliquis 5 mg twice a day, carvedilol 6.25 mg twice a day, clonazepam 1 mg twice a day, colchicine 0.6 mg twice a day, Durezol one drop to right eye 3 times a day, diphenhydramine 25 mg p.o. t.i.d., fentanyl 25 mcg topically q. 72 hours, furosemide 60 mg once a day, gabapentin 300 mg 3 times a day. He is on NovoLog FlexPen insulin sliding scale before meals. He is on Lantus insulin 25 units at bedtime, ketorolac tromethamine one drop to left eye 2 times a day, levothyroxine sodium 75 mcg once a day, linaclotide or Linzess 145 mcg once a day, loperamide 2 mg every 4 hours as needed, lorazepam 1 mg at bedtime, morphine sulfate extended release 30 mg twice a day, ofloxacin 1 drop to the left eye 3 times a day, prednisolone acetate 1 drop to the left eye 3 times a day and Senna-S 1 tablet twice a day. He is also on cefpodoxime 200 mg twice a day for 5 more days. FINAL DISCHARGE DIAGNOSES: 1.Altered mental status, multifactorial including: a. Hypoglycemia that has resolved. b. Urinary tract infection growing Proteus mirabilis sensitive to ceftriaxone. c. Multiple narcotics and hypnotics that was discontinued temporarily. I held his morphine, fentanyl as well as his lorazepam, clonazepam and diphenhydramine. 2. Human immunodeficiency virus status. 3. Congestive heart failure, clinically well compensated. 4. Type 2 diabetes mellitus. 5. Chronic kidney disease. 6. Hypernatremia and hypokalemia, resolved. 7. He has also pressure ulcer on the right heel. RORO DEJESUS MD DR: JUAN PABLO/alen JOB#: [id number] / [id number]
--- NOTE | 2016-10-25 04:10 | PN ---
DATE: 10/24/2016 SUBJECTIVE: The patient is resting, slightly propped up in bed, sleeping comfortably, easily arousable. On questioning him, he stated that he slept well after he got his pain medication. PHYSICAL EXAMINATION: GENERAL: When I examined him, he looked well, slightly pale, but no jaundice, cyanosis, or thyromegaly. No jugular venous distention. No limb edema. VITAL SIGNS: His heart rate was 58, blood pressure was 134/61, temperature was 97.9, respiratory rate was 18 and oxygen saturation was 98% on 2 liters of oxygen. HEAD, EYES, EARS, NOSE AND THROAT: Showed normocephalic, atraumatic. NECK: Supple. HEART: Showed normal first and second heart sounds. No gallop, rub or murmur. CHEST: Clear to auscultation. No crepitation or rhonchi. ABDOMEN: Distended, soft, nontender. No guarding or rigidity. No organomegaly. All hernial orifices intact. Bowel sounds normal. NEUROLOGIC: He is definitely more awake, alert, responding appropriately. Cranial nerves intact. He moves extremities without difficulty. Reviewing his intake and output over the last 24 hours, showed that his intake was 1160, output was 4950. LABORATORY DATA: As of this morning showed a serum sodium 143, potassium 3.4, chloride 111, bicarbonate 24, anion gap of 8, BUN 34, creatinine 1.8, estimated GFR was 57 mL per minute. His glucose was 90, calcium was 8.6. Total bilirubin and ALT normal. AST and alkaline phosphatase are elevated. Total protein was 6.7, albumin 2.5. His white cell count was 5100, hemoglobin 10, hematocrit 30, MCV 83, and platelet count of 135,000. His urine culture has grown Proteus mirabilis sensitive to ceftriaxone. PLAN: My plan is to continue with IV antibiotics, IV Lasix and I will consult the cardiology team to optimize medical management and hopefully discharge him back to [facility] tomorrow. RORO DEJESUS MD DR: JUAN PABLO/alen JOB#: [id number] / [id number]
== END 2016-10-24 16:46 | DRG 682 ==
LOC: ER 17:09 → 5 SOUTH 20:14
PROVIDERS: ADMIT Internal Medicine; ATTEND Internal Medicine
DX: N17.0 Acute kidney failure with tubular necrosis (principal); E43 Unspecified severe protein-calorie malnutrition; N39.0 Urinary tract infection, site not specified; E87.0 Hyperosmolality and hypernatremia; I13.0 Hypertensive heart and chronic kidney disease with heart failure and stage 1 through stage 4 chronic kidney disease, or unspecified chronic kidney disease; E87.1 Hypo-osmolality and hyponatremia; E11.649 Type 2 diabetes mellitus with hypoglycemia without coma; E87.6 Hypokalemia; E11.22 Type 2 diabetes mellitus with diabetic chronic kidney disease; E03.9 Hypothyroidism, unspecified; F03.90 Unspecified dementia, unspecified severity, without behavioral disturbance, psychotic disturbance, mood disturbance, and anxiety; Z21 Asymptomatic human immunodeficiency virus [HIV] infection status; G47.33 Obstructive sleep apnea (adult) (pediatric); I25.10 Atherosclerotic heart disease of native coronary artery without angina pectoris; I25.5 Ischemic cardiomyopathy; I48.91 Unspecified atrial fibrillation; N18.9 Chronic kidney disease, unspecified; F32.9 Major depressive disorder, single episode, unspecified; G47.00 Insomnia, unspecified; L89.619 Pressure ulcer of right heel, unspecified stage; N40.1 Benign prostatic hyperplasia with lower urinary tract symptoms; Z66 Do not resuscitate; Z82.49 Family history of ischemic heart disease and other diseases of the circulatory system; Z95.1 Presence of aortocoronary bypass graft; Z87.440 Personal history of urinary (tract) infections; Z88.8 Allergy status to other drugs, medicaments and biological substances; Z68.28 Body mass index [BMI] 28.0-28.9, adult
CPT/HCPCS: 36415; 70450; 71010; 80053; 81001; 82947; 83036; 83605; 84443; 85027; 87040; 87086; 87186; 87641; 93005; 96360; 96361; J0690; J0696; J1815; J1940; J7030; J7042; 97116; 99285-25